=== PATIENT | female | born 1980 | race Caucasian/White ===

== ENCOUNTER 2016-11-14 20:58 | Emergency (ER) | payer OTHER ==
[2016-11-15 00:45] LABS: HEMOGLOBIN 13.3 gm/dl (12.3-15.3); RED BLOOD COUNT 4.23 M/UL (4.00-5.10); WHITE BLOOD COUNT 17.2 K/UL (4.5-11.0)
== END 2016-11-15 10:35 | disposition home or self-care (01) ==
LOC: ER1 20:58
PROVIDERS: Physician Assistant
DX: N13.9 Obstructive and reflux uropathy, unspecified (principal); N20.0 Calculus of kidney; R11.2 Nausea with vomiting, unspecified; Z98.51 Tubal ligation status; Z88.2 Allergy status to sulfonamides; Z88.1 Allergy status to other antibiotic agents; Z88.8 Allergy status to other drugs, medicaments and biological substances
CPT/HCPCS: 36415; 80053; 81001; 83690; 84703; 85025; 87086; 96374; 96375; 96376; 99285; J1885; J1956; J2270; J2405; J7030

== ENCOUNTER → 2021-05-17 | Outpatient (CLI) | payer OTHER ==
[~2021-05-17] MED LIST: BENTYL 20MG TAB20 MG PO; MACROBID 100 M100 MG PO; PROTONIX40 MG PO; ZOFRAN ODT 4 MG4 MG SL; ZOFRAN4 MG PO
== END ==
LOC: LAB 12:35
DX: Z00.00 Encounter for general adult medical examination without abnormal findings (principal); B18.2 Chronic viral hepatitis C; R74.8 Abnormal levels of other serum enzymes
CPT/HCPCS: 84703

== ENCOUNTER → 2021-06-18 | Outpatient (CLI) | payer OTHER ==
[2021-06-18 17:01] LABS: HEMOGLOBIN 12.6 gm/dl (12.3-15.3); RED BLOOD COUNT 4.15 M/UL (4.00-5.10); WHITE BLOOD COUNT 7.3 K/UL (4.5-11.0)
[2021-06-18 17:18] LABS: BUN/CREATININE RATIO 14 (0-10)
== END ==
LOC: LAB 16:08
DX: B18.2 Chronic viral hepatitis C (principal); R74.8 Abnormal levels of other serum enzymes
CPT/HCPCS: 36415; 80053; 85027; 85610; 87522

== ENCOUNTER → 2021-08-27 | Outpatient (CLI) | payer OTHER ==
[2021-08-27 16:04] LABS: HEMOGLOBIN 12.5 gm/dl (12.3-15.3); RED BLOOD COUNT 4.02 M/UL (4.00-5.10); WHITE BLOOD COUNT 8.4 K/UL (4.5-11.0)
[2021-08-27 16:23] LABS: BUN/CREATININE RATIO 19 (0-10)
== END ==
LOC: LAB 15:44
PROVIDERS: Nurse Practitioner Acute Care
DX: B18.2 Chronic viral hepatitis C (principal); R74.8 Abnormal levels of other serum enzymes; Z00.00 Encounter for general adult medical examination without abnormal findings
CPT/HCPCS: 36415; 80053; 85027; 85610; 86803

== ENCOUNTER 2021-11-07 13:27 | Emergency (ER) | payer OTHER ==
[2021-11-07] MEDS ORDERED: AMOX TR-K CLV1 EAC4 PO (18:58)
[2021-11-07] MEDS ORDERED: PERCOCET 5/325 T1 EA PO (19:04)
== END 2021-11-07 19:18 | disposition home or self-care (01) ==
LOC: ER1 13:27
DX: S02.31XA Fracture of orbital floor, right side, initial encounter for closed fracture (principal); S16.1XXA Strain of muscle, fascia and tendon at neck level, initial encounter; S46.911A Strain of unspecified muscle, fascia and tendon at shoulder and upper arm level, right arm, initial encounter; Z88.2 Allergy status to sulfonamides; Z88.8 Allergy status to other drugs, medicaments and biological substances; Z88.1 Allergy status to other antibiotic agents; W17.89XA Other fall from one level to another, initial encounter; Y93.39 Activity, other involving climbing, rappelling and jumping off
CPT/HCPCS: 70450; 70486; 72125; 73030; 96372; 99284; J1885

== ENCOUNTER → 2021-11-19 | Outpatient (CLI) | payer OTHER ==
[~2021-11-19] MED LIST changes: +AMOX TR-K CLV1 EAC4 PO; +PERCOCET 5/325 T1 EA PO
[2021-11-19 16:10] LABS: HEMOGLOBIN 12.7 gm/dl (12.3-15.3); RED BLOOD COUNT 4.17 M/UL (4.00-5.10); WHITE BLOOD COUNT 7.9 K/UL (4.5-11.0)
[2021-11-19 16:31] LABS: BUN/CREATININE RATIO 13 (0-10)
== END ==
LOC: LAB 15:40
DX: R74.8 Abnormal levels of other serum enzymes (principal); B18.2 Chronic viral hepatitis C; Z00.00 Encounter for general adult medical examination without abnormal findings
CPT/HCPCS: 36415; 80053; 85027; 85610; 86803; 87522